=== PATIENT | male | born 1990 | race Caucasian/White ===

== ENCOUNTER → 2018-04-25 15:04 | Outpatient (CLI) | payer BC, SELFPAY ==
--- NOTE | 2018-04-25 15:06 | RAD_ITS ---
STUDY: X-RAY - RIGHT KNEE REASON FOR EXAM: Male, 27 years old. Pain TECHNIQUE: 4 view(s) of the knee. COMPARISON: None. FINDINGS: Normal visualized distal femur. Normal visualized proximal tibia and fibula. Normal proximal tibiofibular articulation. Normal medial femorotibial compartment. Normal lateral femorotibial compartment. Normal patellofemoral articulation. The soft tissue structures are unremarkable. RAD/Knee 4 or More Views IMPRESSION: Normal x-ray examination of the knee. Electronically Signed: Robbie Brown MD at 15:39 EDT , Service support ,
== END ==
LOC: HPRAD 15:06
PROVIDERS: Visit Provider Physician Assistant
DX: M25.561 Pain in right knee (principal)
CPT/HCPCS: 73564

== ENCOUNTER 2020-03-30 12:14 | Emergency (ER) | payer BC, SELFPAY ==
[2018-12-19 12:44] VITALS: BMI 26.4
[2020-03-30 12:15] VITALS: BP 120/84; PULSE 72; RESP 16; TEMP 36.7; O2SAT 97; BMI 27.7
--- NOTE | 2020-03-30 12:42 | ED.DCSUM_ITS ---
- ER Visit Summary Date of Service: 03/30/20 Chief Complaint: Abdominal pain History of Present Illness: The patient is a 29 M who presents with abdominal pain that began today. Patient states he was at work when the pain began. Patient describes the pain is dull. Patient states pain is over the upper ab domen. Patient states nothing makes it better or worse. Patient states he tried eating and drinking with no improvement. Patient states he had a bowel movement and had no improvement of his pain. Patient states he has nausea but denies any vomiting. Patient denies any diarrhea, melena, or hematochezia. Patient denies any dysuria or hematuria. Physical Examination: Stable. Patient is afebrile. Patient is in no acute distress. Oral mucosa is pink and moist. Neck is supple. Trachea is midline. There is no JVD. Heart was regular rate and rhythm. Lungs are clear and equal bilaterally. Abdomen is soft. Bowel sounds are normal. There is some mild upper abdominal tenderness. There is no rebound or guarding noted. Extremities are intact. There is no calf tenderness or edema. Cranial nerves II through XII are intact. There are no focal motor or sensory deficits noted. Test Results: CBC and comprehensive metabolic profile were essentially within normal limits. Total bilirubin was slightly elevated at 1.5. Lipase was normal at 70. Urinalysis does not show any evidence of urinary tract infection. Emergency Department Course and Treatment: Patient was given IV fluids and Zofran here. Patient was feeling better on reevaluation. Patient was given a note for work. Patient was instructed to eat a bland diet. Patient was started on omeprazole. Patient was given a referral for a primary care physician to follow-up with in 5 to 7 days. Patient understood and was agreeable with the plan. All questions were answered. Disposition: Discharge home Impression: Abdominal pain This note was generated with [employer] dictation software. It may contain incorrect words, spelling, and punctuation that were not noted in review of the chart prior to signing ED Disposition - Plan for ED Patient: Disposition: Home or Assisted Living Diagnosis: Abdominal pain Instructions: ED Unknown Causes of Abdominal Pain Male Prescriptions: Omeprazole [Prilosec] 20 mg PO DAILY #30 cap Prescription Printed Referrals: Dc Pfeiffer III, MD [STAFF PHYSICIAN] - 5-7 Days
[2020-03-30] MEDS: 0.9% Normal Saline 1,000 ML 1000 ML IV (12:46)
[2020-03-30] MEDS: Ondansetron 4 MG/2 ML Vial IV (12:47)
[2020-03-30 12:48] LABS: Absolute Lymphocyte Count 2.18 X10^3/uL (0.83-4.51); Absolute Neutrophil Count 7.9 X10^3/uL (2.0-7.7); Basophil# 0.05 X10^3/uL; Basophil% 0.5 % (0-1); Eosinophil# 0.06 X10^3/uL; Eosinophils% 0.6 % (0-5); Hematocrit 46.3 % (40-54); Lymphocyte # 2.18 X10^3/ul (4.0); Lymphocyte % 20.2 % (19-41); Mean Corp Hgb Conc 34.6 g/dL (32-36); Mean Corpuscular Hgb 29.5 pg (27.0-32.0); Mean Corpuscular Volume 85.4 fL (80-94); Mean Platelet Vol. 9.8 fl (6.2-12.0); Monocyte# 0.58 X10^3/uL; Monocyte% 5.4 % (0-10); NRBC Flagged by Analyzer 0 % (0-5); Neutrophil # 7.87 X10^3/uL (2.7-7.7); Neutrophil % 72.7 % (47-70); Platelet Count 216 K/mm3 (150-450); RBC Distribution Width CV 11.6 % (11.6-14.6); RBC Distribution Width SD 35.6 fl (35.1-43.9); Red Blood Count 5.42 M/mm3 (4.6-6.2); White Blood Count 10.8 K/mm3 (4.4-11.0)
[2020-03-30 13:09] LABS: Bacteria 0 SEEN /hpf (None Seen); Mucous, Urine 0 SEEN /hpf (<or=2+); Red Blood Cells-Urine 0 SEEN /hpf (0-5); Squamous Epithelial Cells - UA 0 SEEN /hpf (0-5)
[2020-03-30 13:10] LABS: Color, Urine Yellow (Yellow); Glucose, Dipstick Normal (Normal); Ketone-Dipstick Negative (Negative); Leukocyte Esterase-Dipstick 25 /ul (Negative); Nitrite-Dipstick Negative (Negative); Occult Blood-Urine Negative /ul (Negative); Protein-Dipstick Negative (Negative); Urine Bilirubin Dipstick Negative (Negative); Urine Clarity Clear (Clear); Urine Urobilinogen Normal (Normal)
[2020-03-30 13:17] LABS: White Blood Cells 0-5 SEEN /hpf (0-5)
[2020-03-30 13:17] LABS: ALB/GLOB Ratio 1.2 RATIO (0.9-2.4); AST(SGOT) 21 U/L (15-37); Alanine Aminotransfer ALT/SGPT 38 U/L (16-61); Albumin, Serum 4.2 g/dL (3.2-5.0); Alkaline Phosphatase 72 U/L (45-117); Anion Gap 8 (5-15); BUN 11 mg/dL (7-18); BUN/Creat Ratio 9.9 RATIO (10-20); Calcium,Total 8.8 mg/dL (8.5-10.1); Chloride 106 mmol/L (98-107); Creatinine, Serum 1.11 mg/dL (0.70-1.30); EST Glomerular Filtration Rate 82 mL/min (>60); Est Glom Filt Rate - Afr Amer 99 mL/min (>60); Estimated Creatinine Clearance 108.97 ml/min; Globulin 3.4 g/dL (2.2-4.2); Glucose 102 mg/dL (74-106); Lipase 70 U/L (73-393); Potassium 3.7 mmol/L (3.5-5.1); Protein, Total 7.6 g/dL (6.4-8.2); Sodium Level 140 mmol/L (136-145)
== END 2020-03-30 14:00 | disposition home or self-care (01) ==
PROVIDERS: Emergency Provider Emergency Medicine
DX: R10.10 Upper abdominal pain, unspecified (principal)
CPT/HCPCS: 80053; 81001; 83690; 85025; 96361; 96374; 99283; J7030; A4216; J2405

== ENCOUNTER 2022-09-18 23:12 | Emergency (ER) | payer BC, SELFPAY ==
[2022-09-18 23:13] VITALS: BP 120/90; PULSE 70; RESP 16; TEMP 36.8; O2SAT 100; BMI 28.3
--- NOTE | 2022-09-19 01:53 | EX.ED.DYSGE1 ---
HPI History of Present Illness Chief Complaint: Foreign Body Narrative Narrative: 31-year-old male presenting with left ear pain. He states this is relatively mild. He states he was Q-tip in his left ear and thinks he lost the cotton part of the Q-tip in his ear. He has not had a fever, chills, cough. No nasal congestion. He is not dizzy or lightheaded. PFSH PFS Medical History Bilateral headaches Cholecystectomy planned History of ulcer disease Knee pain neck/back pain Shoulder pain Home Medications omeprazole 20 mg capsule,delayed release 20 mg PO DAILY #30 caps 03/30/20 [Rx Last Taken Unknown] Allergy/AdvReac Type Severity Reaction Status Date / Time No Known Allergies Allergy Verified 09/18/22 23:14 Family History Other Thyroid disorder Surgical History History of appendectomy History of cholecystectomy Social History Smoking Status: Never smoker alcohol intake: never substance use type: does not use what type of physical activity do you participate in: running and weight training frequency: 3-4 times per week ROS ROS ED Constitutional Constitutional ED: Denies chills, fever(s) or sweats Eyes Eyes: Denies blurry vision or change in vision ENT ENT ED: Reports ear pain; Denies sore throat Cardiovascular Cardiovascular: Denies chest pain, palpitations or racing heartbeat Respiratory/Chest Respiratory/Chest: Denies cough, dyspnea or sputum Gastrointestinal Gastrointestinal: Denies abdominal pain, constipation, diarrhea, nausea or vomiting Genitourinary Genitourinary ED: Denies dysuria, hematuria or urinary frequency Musculoskeletal Musculoskeletal: Denies arthralgias, myalgias or neck pain Integumentary Denies abscess, Abrasions or rash Neurologic Neurologic: Denies headache(s), paresthesias or weakness Psychiatric Psychiatric: Denies anxiety, depression, suicidal ideation or suicidal thoughts Endocrine Endocrinology: Denies polydipsia or polyuria EXAM Physical Exam Const Vital Signs: 09/18/22 23:13 Temperature 98.2 F Temperature Source Temporal Pulse Rate 70 Respiratory Rate 16 Blood Pressure 120/90 H Blood Pressure Mean 100 Pulse Ox 100 Oxygen Delivery Method Room Air Positive well nourished General Appearance ED: NAD; Negative for pallor HEENT Reports normocephalic and moist mucous membranes normocephalic Face and Sinus: normal facial exam External Ear: external ears normal, mastoids normal and no preauricular adenopathy Tympanic Membrane ED: Yes TM abnormal perforation Positive for without discharge Eyes PERRL Neck no lymphadenopathy Chest Wall inspection of chest normal Resp normal respiratory effort Cardio regular rate and regular rhythm Neuro oriented x3 and CN's II-XII intact bilaterally Sensorium / Orientation: alert Skin no rashes or lesions noted General Skin Exam: Negative for jaundice or pallor MDM MDM MDM Narrative Medical decision making narrative: 31-year-old male presenting with mild left ear pain. He states he was using a Q-tip to clean out his left ear and believes he lost the cotton tip to it in his ear. On examination he does have a perforation of the left TM without any drainage or discharge. No foreign bodies are noted. He has minimal pain. I did explain to him that he does not have a foreign body and that he has a perforated eardrum. I gave him ENT follow-up. I do not believe the patient needs any antibiotics or pain medicines. Patient discharged in stable condition. Impression: 1. Left TM perforation Lab Data Attestation: I reviewed the patient's lab results. Discharge Plan Triage Chief Complaint: Foreign Body ED Provider: Glenroy Linares Dx/Rx/DC Orders Instructions: Ruptured Eardrum, ED PERFORATED TM Infected [Adult] Prescriptions: No Action omeprazole 20 MG capsule 20 mg PO DAILY Qty: 30 0RF Primary Care Provider: Care Physician,No Primary Referrals: Arnie Lawrence MD [Med Staff - Active Staff] - As soon as possible Care Physician,No Primary [Primary Care Provider] - Disposition Disposition: Home, Self Care Discharge Date/Time: 09/18/22 23:57
== END 2022-09-18 23:57 | disposition home or self-care (01) ==
PROVIDERS: Emergency Provider Student in an Organized Health Care Education/Training Program; Visit Provider Student in an Organized Health Care Education/Training Program
DX: H72.92 Unspecified perforation of tympanic membrane, left ear (principal); H92.02 Otalgia, left ear
CPT/HCPCS: 99281; 99282